=== PATIENT | male | born 1960 | race Caucasian/White ===

== ENCOUNTER → 2017-01-25 | Outpatient (CLI) | payer BC ==
[~2017-01-25] MED LIST: Gadobutrol 10 mMOL/10 ML SDV IVPUSH STA
--- NOTE | 2017-01-25 14:39 | MR ---
EXAMINATION: MRI of the abdomen with and without contrast HISTORY: Cyst of the kidney COMPARISON: CT dated 12/24/2015 TECHNIQUE: Multiplanar and multisequence images obtained through the abdomen before and following th e administration of 3.5 mL of Gadavist. FINDINGS: There are a few very tiny cysts noted within an otherwise unremarkable liver. Cholelithiasis without evidence of cholecystitis. The spleen and adrenal glands appear normal. The pancreas appears normal . There are numerous cysts within the kidneys bilaterally which are predominantly medullary in locatio n with a few cortical cysts also noted. The kidneys enhance and function symmetrically without evide nce of obstructive uropathy. No abnormal enhancement is noted within the cysts. There is no abnormal bone marrow signal. IMPRESSION: 1. Numerous small cysts within the kidneys predominantly medullary in location. 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 2. There are a few renal cortical base cysts also noted. 3. No acute findings demonstrated within the abdomen. 4. Cholelithiasis without evidence of cholecystitis.
== END ==
LOC: MW.MRI 10:13
PROVIDERS: ATTEND Physician Assistant
DX: N28.1 Cyst of kidney, acquired (principal); K80.20 Calculus of gallbladder without cholecystitis without obstruction
CPT/HCPCS: 74183; A9585

== ENCOUNTER 2018-04-13 11:31 | Emergency (ER) | payer BC ==
--- NOTE | 2018-04-13 11:34 | EDM.PDOC ---
ED HPI GENERAL MEDICAL PROBLEM - General Chief Complaint: Genitourinary Problem Stated Complaint: KIDNEY ISSUES Time Seen by Provider: 04/13/18 11:34 Source of Information: Reports: Patient History Limitations: Reports: No Limitations - History of Present Illness INITIAL COMMENTS - FREE TEXT/NARRATIVE: HISTORY AND PHYSICAL: History of present illness: [57-year-old male presenting in the emergency department with right flank pain 7 days with past medical history of multiple renal calculi in Crohn's disease. Patient states that approximately 7 days ago on Tuesday of last week he began to have some right-sided flank pain. He also reports some associated hematuria on the following day. He has had many renal stones and states that he usually passes them on his own within a couple of days, however his pain persisted so he called his teradata developer Dr. Rojas who scheduled him for a renal ultrasound yesterday here in [place]. Today after renal ultrasound results were communicated to Dr. Rojas patient was called by their staff who instructed patient to come to emergency department for evaluation by Dr. Vicente. Patient states that his pain is currently 7 out of 10 however he has been using his 's Vicodin to keep it at a bearable level. Pain is localized to the right lower flank. He denies any associated fever, chills, nausea, vomiting, diarrhea, or other signs of systemic infection. Currently denies any chest pain, palpitations , shortness breath, syncopal episodes, focal neurologic deficits. He does not believe he has passed a stone. Renal ultrasound on showed a moderate right-sided hydronephrosis and hydroureter with renal cortical echogenicity that was mildly increased from his previous study on 10/31/17. There was also multiple renal cysts noted bilaterally as well as incidental cholelithiasis.] Review of systems: As per history of present illness and below otherwise all systems reviewed and negative. Past medical history: As per history of present illness and as reviewed below otherwise noncontributory. Surgical history: As per history of present illness and as reviewed below otherwise noncontributory. Social history: No reported history of drug or alcohol abuse. Family history: As per history of present illness and as reviewed below otherwise noncontributory. Physical exam: HEENT: Atraumatic, normocephalic, pupils reactive, negative for conjunctival pallor or scleral icterus, mucous membranes moist, throat clear, neck supple, nontender, trachea midline. Lungs: Clear to auscultation, breath sounds equal bilaterally, chest nontender. Heart: S1S2, regular, negative for clicks, rubs, or JVD. Abdomen: Soft, nondistended, nontender. Negative for masses or hepatosplenomegaly. Right sided costovertebral tenderness. Pelvis: Stable nontender. Genitourinary: Deferred. Rectal: Deferred. Extremities: Atraumatic, negative for cords or calf pain. Neurovascular unremarkable. Neuro: Awake, alert, oriented. Cranial nerves II through XII unremarkable. Cerebellum unremarkable. Motor and sensory unremarkable throughout. Exam nonfocal. Diagnostics: [CBC, CMP, UA, UC, CT abd/pelvis Therapeutics: [1 L LR, 0.5mg Dilaudid x1, Zofran 4 mg IV 1 ] Impression: Ureterolithiasis, Flank Pain, Hematuria, JOSE Plan: Patient was given 0.5 mg IV Dilaudid, 4 mg IV Zofran, and 1 L LR which helped with his pain control. CBC and urinalysis were unremarkable, no evidence of UTI. CMP did reveal a elevated creatinine clearance of 2.7 this was up from 1.6 on 11/16/17. CT abd/pelvis showed 2 6mm stones in the right ureter, 1 near the UV junction and one mid distal with proximal hydroureter and hydronephrosis. Dr. Vicente, urologist was advised of the patient and after reviewing CT results recommended the patient immediately come to his clinic for further evaluation. Above was all explained to patient and his were in acknowledgment patient was discharged in fair condition with instructions to proceed immediately to Dr. Vicente's clinic for further assessment. Right Flank Pain Score (Numeric/FACES): 7 - Related Data Allergies Allergy/AdvReac Type Severity Reaction Status Date / Time No Known Allergies Allergy Verified 12/24/15 14:14 Home Meds: Home Meds . [No Known Home Meds] 12/24/15 [History] Past Medical History HEENT History: Reports: Other (See Below) Other HEENT History: wearing glasses Cardiovascular History: Reports: None Respiratory History: Reports: None Gastrointestinal History: Reports: Chronic Diarrhea, Other (See Below) Other Gastrointestinal History: chrons dse Genitourinary History: Reports: None Musculoskeletal History: Reports: None Neurological History: Reports: None Psychiatric History: Reports: None Endocrine/Metabolic History: Reports: None Hematologic History: Reports: None Immunologic History: Reports: None Oncologic (Cancer) History: Reports: None Dermatologic History: Reports: None - Infectious Disease History Infectious Disease History: Reports: Chicken Pox, Measles - Past Surgical History GI Surgical History: Reports: Other (See Below) ED ROS GENERAL - Review of Systems Review Of Systems: See Below ED EXAM, GENERAL - Physical Exam Exam: See Below Course - Vital Signs Last Recorded V/S: Last Vital Signs Temp 97.5 F 04/13/18 11:45 Pulse 65 04/13/18 13:34 Resp 18 04/13/18 13:34 BP 179/89 H 04/13/18 13:34 Pulse Ox 98 04/13/18 13:34 - Orders/Labs/Meds Orders: Active Orders 24 hr Category Date Time Status CULTURE URINE [RM] Stat Lab 04/13/18 11:58 Received UA W/MICROSCOPIC [URIN] Stat Lab 04/13/18 11:58 Ordered Lactated Ringers [Ringers, Lactated] 1,000 ml Med 04/13/18 12:15 Active IV ASDIRECTED Medication Orders Lactated Ringer's (Ringers, Lactated) 1,000 mls @ 100 mls/hr IV ASDIRECTED KEHINDE Last Admin: 04/13/18 12:13 Dose: 100 mls/hr Labs: Laboratory Tests 04/13/18 04/13/18 04/13/18 Range/Units 11:55 11:55 11:58 WBC 11.35 H (4.0-11.0) K/uL RBC 4.80 (4.50-5.90) M/uL Hgb 14.5 (13.0-17.0) g/dL Hct 42.7 (38.0-50.0) % MCV 89.0 (80.0-98.0) fL MCH 30.2 (27.0-32.0) pg MCHC 34.0 (31.0-37.0) g/dL RDW Std Deviation 43.5 (28.0-62.0) fl RDW Coeff of Marc 13 (11.0-15.0) % Plt Count 227 (150-400) K/uL MPV 9.10 (7.40-12.00) fL Neut % (Auto) 74.6 (48.0-80.0) % Lymph % (Auto) 15.7 L (16.0-40.0) % Mower % (Auto) 8.2 (0.0-15.0) % Eos % (Auto) 1.1 (0.0-7.0) % Baso % (Auto) 0.4 (0.0-1.5) % Neut # (Auto) 8.5 H (1.4-5.7) K/uL Lymph # (Auto) 1.8 (0.6-2.4) K/uL Mower # (Auto) 0.9 H (0.0-0.8) K/uL Eos # (Auto) 0.1 (0.0-0.7) K/uL Baso # (Auto) 0.0 (0.0-0.1) K/uL Nucleated RBC % 0.0 /100WBC Nucleated RBCs # 0 K/uL Sodium 137 (136-148) mmol/L Potassium 4.3 (3.5-5.1) mmol/L Chloride 106 (98-107) mmol/L Carbon Dioxide 22.7 (21.0-32.0) mmol/L BUN 30 H (7.0-18.0) mg/dL Creatinine 2.7 H (0.8-1.3) mg/dL Est Cr Clr Drug Dosing 29.70 mL/min Estimated GFR (MDRD) 24.4 ml/min Glucose 99 (74-106) mg/dL Calcium 9.3 (8.5-10.1) mg/dL Total Bilirubin 0.4 (0.2-1.0) mg/dL AST 22 (15-37) IU/L ALT 24 (14-63) IU/L Alkaline Phosphatase 86 (46-116) U/L Total Protein 7.6 (6.4-8.2) g/dL Albumin 3.6 (3.4-5.0) g/dL Globulin 4.0 H (2.0-3.5) g/dL Albumin/Globulin Ratio 0.9 L (1.3-2.8) Urine Color YELLOW Urine Appearance CLEAR Urine pH 6.0 (5.0-8.0) Ur Specific [place] 1.020 (1.001-1.035) Urine Protein TRACE (NEGATIVE) mg/dL Urine Glucose (UA) NEGATIVE (NEGATIVE) mg/dL Urine Ketones NEGATIVE (NEGATIVE) mg/dL Urine Occult Blood MODERATE (NEGATIVE) Urine Nitrite NEGATIVE (NEGATIVE) Urine Bilirubin NEGATIVE (NEGATIVE) Urine Urobilinogen 0.2 (<2.0) EU/dL Ur Leukocyte Esterase NEGATIVE (NEGATIVE) Urine RBC 0-2 (0-2/HPF) Urine WBC 0-1 (0-5/HPF) Ur Epithelial Cells RARE (NONE-FEW) Urine Bacteria RARE (NEGATIVE) Meds: Medications Generic Name Dose Route Start Last Admin Trade Name Freq PRN Reason Stop Dose Admin Lactated Ringer's 1,000 mls @ 100 mls/hr 04/13/18 12:15 04/13/18 12:13 Ringers, Lactated IV 100 mls/hr ASDIRECTED KEHINDE Administration Discontinued Medications Generic Name Dose Route Start Last Admin Trade Name Freq PRN Reason Stop Dose Admin Hydromorphone HCl 0.5 mg 04/13/18 12:07 04/13/18 12:14 Dilaudid IVPUSH 04/13/18 12:08 0.5 mg ONETIME ONE Administration Ondansetron HCl 4 mg 04/13/18 12:07 04/13/18 12:14 Zofran IVPUSH 04/13/18 12:08 4 mg ONETIME ONE Administration Departure - Departure Time of Disposition: 14:54 Disposition: Home, Self-Care 01 Condition: Good Clinical Impression: Ureterolithiasis - Discharge Information Referrals: PCP,None [Primary Care Provider] - Forms: ED Department Discharge Additional Instructions: My general discharge The following information is given to patients seen in the emergency department who are being discharged to home. This information is to outline your options for follow-up care. We provide all patients seen in our emergency department with a follow-up referral. The need for follow-up, as well as the timing and circumstances, are variable depending upon the specifics of your emergency department visit. If you don't have a primary care physician on staff, we will provide you with a referral. We always advise you to contact your personal physician following an emergency department visit to inform them of the circumstance of the visit and for follow-up with them and/or the need for any referrals to a consulting specialist. The emergency department will also refer you to a specialist when appropriate. This referral assures that you have the opportunity for follow-up care with a specialist. All of these measure are taken in an effort to provide you with optimal care, which includes your follow-up. Under all circumstances we always encourage you to contact your private physician who remains a resource for coordinating your care. When calling for follow-up care, please make the office aware that this follow-up is from your recent emergency room visit. If for any reason you are refused follow-up, please contact the [facility] Emergency Department at and asked to speak to the emergency department charge nurse. [facility] - Urology [address] [place] [id number] - My Orders Last 24 Hours: My Active Orders 04/13/18 11:58 CULTURE URINE [RM] Stat UA W/MICROSCOPIC [URIN] Stat 04/13/18 12:15 Lactated Ringers [Ringers, Lactated] 1,000 ml IV ASDIRECTED - Assessment/Plan Last 24 Hours: My Active Orders 04/13/18 11:58 CULTURE URINE [RM] Stat UA W/MICROSCOPIC [URIN] Stat 04/13/18 12:15 Lactated Ringers [Ringers, Lactated] 1,000 ml IV ASDIRECTED
[2018-04-13] MEDS ORDERED: HYDROmorphone 1 MG/ML Syringe IVPUSH ONE (12:07)
[2018-04-13] MEDS ORDERED: Ondansetron 4 MG/2 ML SDV IVPUSH ONE (12:07)
[2018-04-13] MEDS ORDERED: Lactated Ringers 1,000 ML IV SCH (12:15)
--- NOTE | 2018-04-13 14:22 | CT ---
CT of the abdomen and pelvis without contrast. HISTORY: Flank pain TECHNIQUE: Axial CT images were obtained of the abdomen and pelvis without contrast. Coronal and sagi ttal reconstructions obtained. FINDINGS: The lung bases are clear, no pleural effusion. The liver, spleen, adrenal glands, and pancreas appear unremarkable for noncontrast examination. The lithiasis without evidence of cholecystitis. There is no bulky retroperitoneal lymphadenopathy. No ab dominal ascites. There is a 6 mm obstructing stone within the mid to distal right ureter with moderate proximal hydron ephrosis. There is an additional 6 mm stone near the right ureterovesicular junction. Otherwise 2 mm nonobstructing stone noted bilaterally. Bilateral renal cortical cysts also demonstrated. The large and small bowel are normal in caliber without evidence of obstruction. Right hemicolectomy. There is no bulky pelvic lymphadenopathy. No free fluid. No free air. The urinary bladder appears no rmal. The visualized osseous structures appear normal. IMPRESSION: 1. There are 2 6-mm nonobstructing stones within the mid to distal and distal right ureter with moder ate proximal hydronephrosis. 2. Right hemicolectomy changes. 3. Small nonobstructing nephrolithiasis bilaterally.
[2018-04-13 15:05] VITALS: BP 146/90
== END 2018-04-13 15:02 | disposition home or self-care (01) ==
LOC: MW.ED 11:31
DX: N13.2 Hydronephrosis with renal and ureteral calculous obstruction (principal)
CPT/HCPCS: 36415; 74176; 80053; 81001; 85025; 87086; 96361; 96374; 96375; 99284; J1170; J2405; J7120; 99283

== ENCOUNTER 2018-04-14 11:27 | Day surgery (SDC) | payer BC ==
[~2018-04-14 11:27] MED LIST changes: -Gadobutrol 10 mMOL/10 ML SDV IVPUSH STA; +Iopamidol 408 MG/ML 50 ML SDV ONE; +Lactated Ringers 1,000 ML IV SCH; +Sodium Chloride 0.9% 10 ML Syringe FLUSH PRN; +Sodium Chloride 0.9% 2.5 ML Syringe FLUSH PRN; +ceFAZolin 1 GM Vial IV ONE
--- NOTE | 2018-04-14 12:11 | PCM.PREANE ---
Preanesthetic Assessment - Anesthesia/Transfusion/Family Hx Anesthesia History: Prior Anesthesia Without Reaction Transfusion History: No Prior Transfusion(s) Intubation History: Unknown - Review of Systems General: Other (back/ abdominal pain due to ureteral stones) Pulmonary: Other (hx asthma) Gastrointestinal: Other (Crohns disease) Neurological: No Symptoms Other: Reports: None - Physical Assessment NPO Status Date: 04/13/18 NPO Status Time: 23:00 Height: 5 ft 11 in Weight: 158 lb ASA Class: 3 Mental Status: Alert & Oriented x3 Airway Class: Mallampati = 1 Dentition: Reports: Normal Dentition, Caries (in multiple molars) Thyro-Mental Finger Breadths: 3 Mouth Opening Finger Breadths: 3 ROM/Head Extension: Full Lungs: Clear to Auscultation, Normal Respiratory Effort Cardiovascular: Regular Rate, Regular Rhythm, No Murmurs Other: wearing bottle glasses - Allergies Allergies/Adverse Reactions: Allergies Allergy/AdvReac Type Severity Reaction Status Date / Time No Known Allergies Allergy Verified 04/13/18 16:36 - Blood Blood Available: No Product(s) Available: None - Anesthesia Plan Pre-Op Medication Ordered: None - Acknowledgements Anesthesia Type Planned: General Anesthesia (OET ) Pt an Appropriate Candidate for the Planned Anesthesia: Yes Alternatives and Risks of Anesthesia Discussed w Pt/Guardian: Yes Pt/Guardian Understands and Agrees with Anesthesia Plan: Yes PreAnesthesia Questionnaire HEENT History: Reports: Other (See Below) Other HEENT History: wearing glasses Cardiovascular History: Reports: None Respiratory History: Reports: Asthma, Other (See Below) Other Respiratory History: asthma as a child Gastrointestinal History: Reports: Chronic Diarrhea, Other (See Below) Other Gastrointestinal History: crohns disease (treated with diet) Genitourinary History: Reports: Renal Calculus Musculoskeletal History: Reports: None Neurological History: Reports: None Psychiatric History: Reports: None Endocrine/Metabolic History: Reports: None Hematologic History: Reports: None Immunologic History: Reports: None Oncologic (Cancer) History: Reports: None Dermatologic History: Reports: None - Infectious Disease History Infectious Disease History: Reports: Chicken Pox, Measles - Past Surgical History Head Surgeries/Procedures: Reports: None HEENT Surgical History: Reports: None, Tonsillectomy Cardiovascular Surgical History: Reports: None Respiratory Surgical History: Reports: None GI Surgical History: Reports: Other (See Below) Other GI Surgeries/Procedures: 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 Other Female Surgeries/Procedures: multiple kidney stone extractions Male Surgical History: Reports: Kidney Stone Extraction Endocrine Surgical History: Reports: None Neurological Surgical History: Reports: None Musculoskeletal Surgical History: Reports: Other (See Below) Other Musculoskeletal Surgeries/Procedures:: left clavicle surgery for osteomylitis Oncologic Surgical History: Reports: None - SUBSTANCE USE Smoking Status *Q: Current Every Day Smoker Tobacco Use Within Last Twelve Months: Cigarettes Days Per Week of Alcohol Use: 7 Recreational Drug Use History: No - HOME MEDS Home Medications: Home Meds Tamsulosin HCl [Flomax] 0.4 mg PO DAILY 04/13/18 [History] - CURRENT (IN HOUSE) MEDS Current Meds: Current Medications Lactated Ringer's (Ringers, Lactated) 1,000 mls @ 100 mls/hr IV ASDIRECTED KEHINDE Sodium Chloride (Saline Flush) 10 ml FLUSH ASDIRECTED PRN PRN Reason: Keep Vein Open Sodium Chloride (Saline Flush) 2.5 ml FLUSH ASDIRECTED PRN PRN Reason: Keep Vein Open Discontinued Medications Cefazolin Sodium (Ancef) 1 gm IV ONCALL ONE Stop: 04/14/18 00:02 Iopamidol (Isovue-200 (41%)) Confirm Administered Dose 50 ml .ROUTE .STK-MED ONE Stop: 04/14/18 08:24
[2018-04-14] MEDS ORDERED: Midazolam 1 MG/ML 2 ML SDV ONE (12:42)
[2018-04-14] MEDS ORDERED: Ondansetron 4 MG/2 ML SDV ONE (12:42)
[2018-04-14] MEDS ORDERED: fentaNYL 250 MCG/5 ML SDV ONE (12:42)
[2018-04-14] MEDS ORDERED: Propofol 200 MG/20 ML SDV ONE (12:42)
[2018-04-14] MEDS ORDERED: Ketorolac 30 MG/ML SDV ONE (12:42)
[2018-04-14] MEDS ORDERED: Lidocaine 2% 5 ML SDV ONE (12:42)
[2018-04-14] MEDS ORDERED: ePHEDrine 50 MG/ML SDV ONE (13:24)
[2018-04-14] MEDS ORDERED: fentaNYL 100 MCG/2 ML SDV IVPUSH PRN (13:39)
--- NOTE | 2018-04-14 15:19 | PCM.POSTAN ---
POST ANESTHESIA ASSESSMENT - MENTAL STATUS Mental Status: Alert, Oriented Free Text/Narrative:: Resting comfortably responding verbally to verbal taking ice chips - VITAL SIGNS Pulse Rate: 71 SaO2: 95 (Room air) Resp Rate: 13 Blood Pressure: 122/83 - RESPIRATORY Respiratory Status: Respiratory Rate WNL, Airway Patent, O2 Saturation Stable - CARDIOVASCULAR CV Status: Pulse Rate WNL, Blood Pressure Stable - GASTROINTESTINAL GI Status: No Symptoms - PAIN Pain Score: 2 (feels need to void) - POST OP HYDRATION Hydration Status: Adequate & Stable
--- NOTE | 2018-04-14 15:45 | CR ---
EXAMINATION: Ureteroscopy HISTORY: Stone removal COMPARISON: 04/13/2018 TECHNIQUE: 2 images provided FINDINGS/IMPRESSION: Operative control films demonstrate selection of the right ureter with balloon i nsufflation. Initial image demonstrates 2 stones, only one is noted on the second imaging.
--- NOTE | 2018-04-14 15:49 | PCM48HPAN ---
Post Anesthesia Note - EVALUATION WITHIN 48HRS OF ANESTHETIC Vital Signs in Normal Range: Yes Patient Participated in Evaluation: Yes Respiratory Function Stable: Yes Airway Patent: Yes Cardiovascular Function Stable: Yes Hydration Status Stable: Yes Pain Control Satisfactory: Yes Nausea and Vomiting Control Satisfactory: Yes Mental Status Recovered: Yes Pulse Rate: 71 Resp Rate: 13 Blood Pressure: 122/83 - COMMENTS/OBSERVATIONS Free Text/Narrative:: Will be OK for discharge home when he is a little less sedate.
[2018-04-14 16:21] VITALS: BP 158/86
--- NOTE | 2018-04-14 19:38 | OR ---
SURGEON: Lore Vicente M.D. DATE OF PROCEDURE: 04/14/2018 PREOPERATIVE DIAGNOSIS: Two lower ureteral stones, one was 6.3 and the other was 5.7 mm each. POSTOPERATIVE DIAGNOSIS: Two lower ureteral stones, one was 6.3 and the other was 5.7 mm each. OPERATIONS: Right ureteroscopy, laser lithotripsy. DESCRIPTION OF PROCEDURE: The patient was given general anesthesia, placed in dorsal lithotomy position, prepped and draped in sterile drapes. Cystourethroscopy was done that was normal. A Glidewire was advanced in the right ureter alongside the stone all the way up into the renal pelvis. Lower ureter was then dilated using the UroMax II balloon dilator to approximately 15-[place]. The rigid ureteroscope was used to gain access to the lower ureter. The various stone was broken up using laser. The pieces were emptied in the bladder. The second stone was also broken in same way using the laser to grab and removed. With that done, all the pieces were irrigated out of the bladder. Cystoscopy showed no residual stones in the bladder. The ureter was clean. With that done, the procedure was terminated. The bladder was emptied, and the patient was moved to recovery room in good condition. ADRIANA / STEVE /[id number]
== END 2018-04-14 16:30 | disposition home or self-care (01) ==
LOC: MW.SDS 11:27
PROVIDERS: ATTEND Urology
DX: N20.1 Calculus of ureter (principal); K60.5 Anorectal fistula; N28.1 Cyst of kidney, acquired; H61.23 Impacted cerumen, bilateral; F17.210 Nicotine dependence, cigarettes, uncomplicated; J45.909 Unspecified asthma, uncomplicated; Z90.89 Acquired absence of other organs; Z79.899 Other long term (current) drug therapy
CPT/HCPCS: 76000; 76000-26; J0690; J1885; J2250; J2405; J2704; J3010; J7120; Q9966

== ENCOUNTER 2020-10-02 12:14 | Emergency (ER) | payer BC ==
--- NOTE | 2020-10-02 12:26 | EDM.PDOC ---
ED HPI GENERAL MEDICAL PROBLEM - General Chief Complaint: Genitourinary Problem Stated Complaint: KIDNEY STONE Time Seen by Provider: 10/02/20 12:25 Source of Information: Reports: Patient History Limitations: Reports: No Limitations - History of Present Illness INITIAL COMMENTS - FREE TEXT/NARRATIVE: HISTORY AND PHYSICAL: History of present illness: Patient is a 59-year-old male who presents to the emergency room with complaints of bilateral flank pain, left worse than right. Patient states he has a history of frequent kidney stones. He states this morning he had felt he passed a rate kidney stone, but now has pain in the left flank and believes it is "too large to pass". He states he has nausea, vomiting and generalized abdominal pain. Patient denies any fever, chills, headache, change in vision, syncope or near syncope. Denies any chest pain, back pain, shortness of breath or cough. Denies any abdominal pain, nausea, vomiting, diarrhea, constipation or dysuria. Has not noted any blood in urine or stool. Patient has been eating and drinking appropriately. Review of systems: As per history of present illness and below otherwise all systems reviewed and negative. Past medical history: As per history of present illness and as reviewed below otherwise noncontributory. Surgical history: As per history of present illness and as reviewed below otherwise noncontributory. Social history: See social history for further information Family history: As per history of present illness and as reviewed below otherwise noncontributory. Physical exam: General: Well developed and well nourished. Alert and orientated x 3. Nontoxic in appearance and in no acute distress. Vital signs are stable and have been reviewed by me. Nursing notes were reviewed. HEENT: Atraumatic, normocephalic, pupils equal and reactive bilaterally, negative for conjunctival pallor or scleral icterus, mucous membranes moist, trachea midline. No drooling or trismus noted. No meningeal signs. No hot potato voice noted. Lungs: Clear to auscultation, breath sounds equal bilaterally, chest nontender. Normal work of breathing, no accessory muscles used. Heart: S1S2, regular rate and rhythm without overt murmur Abdomen: Soft, nondistended, nontender. Negative for masses or hepatosplenomegaly. Left-sided costovertebral tenderness. Skin: Intact, warm, dry. No lesions or rashes noted. Hematologic: No petechiae or purpra. Mucosa appropriate color and normal nail bed color and refill. Extremities: Atraumatic, moves all extremities per self without difficulty or deficits, negative for cords or calf pain. Neurovascular unremarkable. Neuro: Awake, alert, oriented. Cranial nerves II through XII unremarkable. Cerebellum unremarkable. Motor and sensory unremarkable throughout. Exam nonfocal. Psychiatric: Mood and affect are appropriate. Normal thought process. Answering questions appropriately. Notes: CT shows an 8 mm stone in the proximal left ureter just below the ureteropelvic junction with associated left-sided hydronephrosis and hydroureter. Otherwise extensive cystic changes are noted in the kidneys (chronic findings: "spongy kidneys"). Patient does have a leukocytosis. BUN and creatinine are elevated, Our urologist is currently unavailable. I did speak with Dr. Graves, urology at [facility] in [place]. She believes the patient is stable for discharge and can follow-up in her clinic. I have spoken with the patient/caregiver and discussed today's findings, in addition to providing specific details for plan of care. Reassessment at the time of disposition demonstrates that the patient is in no acute distress. The patient is stable for discharge, counseling was provided and we discussed in great detail signs and symptoms that would prompt them to return to the Emergency Department. Medication, follow up and supportive care measures were reviewed and discussed. Voices understanding and is agreeable to plan of care. Denies any further questions or concerns at this time. Diagnostics: CBC, CMP, UA, CT abdomen and pelvis Therapeutics: IV fluid, Zofran, morphine, Dilaudid, Rocephin Prescription: Cipro, [place], Zofran Impression: Kidney Stone Hydronephrosis Plan: 1. Today your CT shows you have a large kidney stone on the left. This may or may not pass. Increase your fluids. Dr Vicente ([facility] urologist is out of town x 2 weeks), I spoke with Dr Graves ([facility] urologist) who is happy to see you in her office if needed. Please call her clinic to set up an appointment. . If your symptoms should worsen, new symptoms develop (fever, unable to pee, unbearable pain) or any of the signs and symptoms we discussed should arise please return to the emergency room or call 911 (if needed). 2. Take the medications as directed. 3. We encourage you to follow up with your primary care provider and/or Urologist in the next few days for re-evaluation and further care/management. Definitive disposition and diagnosis as appropriate pending reevaluation and review of above. Left flank Pain Score (Numeric/FACES): 9 - Related Data Allergies Allergy/AdvReac Type Severity Reaction Status Date / Time No Known Allergies Allergy Verified 10/02/20 12:59 Home Meds: Home Meds Acetaminophen/HYDROcodone [[place] 325-5 MG] 1 dose PO Q4H #30 tablet 10/02/20 [Rx] Ciprofloxacin HCl [Cipro] 500 mg PO BID 7 Days #14 tablet 10/02/20 [Rx] Ondansetron [Zofran ODT] 4 mg PO Q6H PRN #8 tab.dis 10/02/20 [Rx] Past Medical History HEENT History: Reports: Other (See Below) Other HEENT History: wearing glasses Cardiovascular History: Reports: None Respiratory History: Reports: Asthma, Other (See Below) Other Respiratory History: asthma as a child Gastrointestinal History: Reports: Chronic Diarrhea, Other (See Below) Other Gastrointestinal History: crohns disease (treated with diet) Genitourinary History: Reports: Renal Calculus Musculoskeletal History: Reports: None Neurological History: Reports: None Psychiatric History: Reports: None Endocrine/Metabolic History: Reports: None Hematologic History: Reports: None Immunologic History: Reports: None Oncologic (Cancer) History: Reports: None Dermatologic History: Reports: None - Infectious Disease History Infectious Disease History: Reports: Chicken Pox, Measles - Past Surgical History Head Surgeries/Procedures: Reports: None HEENT Surgical History: Reports: None, Tonsillectomy Cardiovascular Surgical History: Reports: None Respiratory Surgical History: Reports: None GI Surgical History: Reports: Other (See Below) Other GI Surgeries/Procedures: 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 ED EXAM, RENAL/ - Physical Exam Exam: See Below (See dictation) Course - Vital Signs Last Recorded V/S: Last Vital Signs Temp 96.9 F 10/02/20 12:30 Pulse 88 10/02/20 12:30 Resp 18 10/02/20 12:30 BP 165/77 H 10/02/20 12:30 Pulse Ox 100 10/02/20 12:30 - Orders/Labs/Meds Labs: Laboratory Tests 10/02/20 10/02/20 10/02/20 Range/Units 12:49 12:49 13:47 WBC 15.95 H (4.0-11.0) K/uL RBC 4.72 (4.50-5.90) M/uL Hgb 14.7 (13.0-17.0) g/dL Hct 44.4 (38.0-50.0) % MCV 94.1 (80.0-98.0) fL MCH 31.1 (27.0-32.0) pg MCHC 33.1 (31.0-37.0) g/dL RDW Std Deviation 45.9 (28.0-62.0) fl RDW Coeff of Marc 13 (11.0-15.0) % Plt Count 250 (150-400) K/uL MPV 9.30 (7.40-12.00) fL Neut % (Auto) 78.0 (48.0-80.0) % Lymph % (Auto) 12.9 L (16.0-40.0) % Butler % (Auto) 8.5 (0.0-15.0) % Eos % (Auto) 0.3 (0.0-7.0) % Baso % (Auto) 0.3 (0.0-1.5) % Neut # (Auto) 12.5 H (1.4-5.7) K/uL Lymph # (Auto) 2.1 (0.6-2.4) K/uL Butler # (Auto) 1.4 H (0.0-0.8) K/uL Eos # (Auto) 0.0 (0.0-0.7) K/uL Baso # (Auto) 0.0 (0.0-0.1) K/uL Nucleated RBC % 0.0 /100WBC Nucleated RBCs # 0 K/uL Sodium 140 (136-148) mmol/L Potassium 4.3 (3.5-5.1) mmol/L Chloride 108 H (98-107) mmol/L Carbon Dioxide 18.2 L (21.0-32.0) mmol/L BUN 22 H (7.0-18.0) mg/dL Creatinine 2.6 H (0.8-1.3) mg/dL Est Cr Clr Drug Dosing 31.01 mL/min Estimated GFR (MDRD) 25.3 ml/min Glucose 113 H (74-106) mg/dL Calcium 8.8 (8.5-10.1) mg/dL Total Bilirubin 0.4 (0.2-1.0) mg/dL AST 20 (15-37) IU/L ALT 23 (14-63) IU/L Alkaline Phosphatase 78 (46-116) U/L Total Protein 6.6 (6.4-8.2) g/dL Albumin 3.6 (3.4-5.0) g/dL Globulin 3.0 (2.6-4.0) g/dL Albumin/Globulin Ratio 1.2 (0.9-1.6) Urine Color YELLOW Urine Appearance CLEAR Urine pH 5.5 (5.0-8.0) Ur Specific [place] 1.025 (1.001-1.035) Urine Protein NEGATIVE (NEGATIVE) mg/dL Urine Glucose (UA) NEGATIVE (NEGATIVE) mg/dL Urine Ketones NEGATIVE (NEGATIVE) mg/dL Urine Occult Blood LARGE H (NEGATIVE) Urine Nitrite NEGATIVE (NEGATIVE) Urine Bilirubin NEGATIVE (NEGATIVE) Urine Urobilinogen 0.2 (<2.0) EU/dL Ur Leukocyte Esterase NEGATIVE (NEGATIVE) Urine RBC 12-13 (0-2/HPF) Urine WBC 0-1 (0-5/HPF) Ur Epithelial Cells RARE (NONE-FEW) Urine Bacteria RARE (NEGATIVE) Meds: Medications Discontinued Medications Generic Name Dose Route Start Last Admin Trade Name Freq PRN Reason Stop Dose Admin Hydromorphone HCl 1 mg 10/02/20 13:39 10/02/20 13:53 Dilaudid IVPUSH 10/02/20 13:40 1 mg ONETIME ONE Administration Sodium Chloride 1,000 mls @ 999 mls/hr 10/02/20 12:28 10/02/20 12:49 Normal Saline IV 10/02/20 13:28 999 mls/hr STAT ONE Administration Ceftriaxone Sodium/Dextrose 1 50 mls @ 100 mls/hr 10/02/20 13:39 10/02/20 13:53 gm/ Premix IV 10/02/20 14:08 100 mls/hr ONETIME ONE Administration Morphine Sulfate 4 mg 10/02/20 12:28 10/02/20 12:48 Morphine IVPUSH 10/02/20 12:29 4 mg ONETIME ONE Administration Ondansetron HCl 4 mg 10/02/20 12:28 10/02/20 12:48 Zofran IVPUSH 10/02/20 12:29 4 mg ONETIME ONE Administration Departure - Departure Time of Disposition: 14:26 Disposition: Home, Self-Care 01 Clinical Impression: Kidney stone on left side Hydronephrosis Qualifiers: 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 This information is to outline your options for follow-up care. We provide all patients seen in our emergency department with a follow-up referral. The need for follow-up, as well as the timing and circumstances, are variable depending upon the specifics of your emergency department visit. If you don't have a primary care physician on staff, we will provide you with a referral. We always advise you to contact your personal physician following an emergency department visit to inform them of the circumstance of the visit and for follow-up with them and/or the need for any referrals to a consulting specialist. The emergency department will also refer you to a specialist when appropriate. This referral assures that you have the opportunity for follow-up care with a specialist. All of these measure are taken in an effort to provide you with optimal care, which includes your follow-up. Under all circumstances we always encourage you to contact your private physician who remains a resource for coordinating your care. When calling for follow-up care, please make the office aware that this follow-up is from your recent emergency room visit. If for any reason you are refused follow-up, please contact the [facility] Emergency Department at and asked to speak to the emergency department charge nurse. Dr Graves (Urologist) [address] [place] [address]: Located on [address] Floor Thank you for choosing the [facility] emergency department in [place] for your medical needs today. It was a pleasure caring for you. Today you were seen in the emergency department for kidney stone. 1. Today your CT shows you have a large kidney stone on the left. This may or may not pass. Increase your fluids. Dr Vicente ([facility] urologist is out of town x 2 weeks), I spoke with Dr Graves ([facility] urologist) who is happy to see you in her office if needed. Please call her clinic to set up an appointment. . If your symptoms should worsen, new symptoms develop (fever, unable to pee, unbearable pain) or any of the signs and symptoms we discussed should arise please return to the emergency room or call 911 (if needed). 2. Take the medications as directed. 3. We encourage you to follow up with your primary care provider and/or Urologist in the next few days for re-evaluation and further care/management. Sepsis Event Note (ED) - Focused Exam Vital Signs: Vital Signs Temp Pulse Resp BP Pulse Ox 10/02/20 12:30 96.9 F 88 18 165/77 H 100
[2020-10-02] MEDS ORDERED: Ondansetron 4 MG/2 ML SDV IVPUSH ONE (12:28)
[2020-10-02] MEDS ORDERED: Morphine 4 MG/ML Syringe IVPUSH ONE (12:28)
[2020-10-02] MEDS ORDERED: Sodium Chloride 0.9% 1,000 ML IV ONE (12:28)
[2020-10-02 13:18] LABS: CARBON DIOXIDE,CO2 18.2 mmol/L (21.0-32.0); POTASSIUM,K 4.3 mmol/L (3.5-5.1)
--- NOTE | 2020-10-02 13:32 | CT ---
Indication: Left flank pain Technique: Volumetric multidetector CT images of the abdomen and pelvis were without the administration of intravenous contrast. Comparison: CT abdomen and pelvis April 13, 2018 Findings: There is basilar atelectasis versus scar. The liver is again mildly prominent, similar to comparison exam. There is a dependent gallstone within the gallbladder otherwise, the gallbladder is unremarkable. There is no significant common biliary ductal dilatation or abrupt cut off. The spleen is normal in attenuation and size. The stomach and duodenum are grossly unremarkable. The pancreas is normal in attenuation without significant atrophy. The adrenal glands are unremarkable. There is demonstration of left-sided hydronephrosis and hydroureter with a 8 millimeter calculus just below the ureteropelvic junction. There are likely cystic changes of the bilateral kidneys appreciated. Nonobstructing calculi are seen in the bilateral collecting systems. There is moderate stool seen throughout the colon with prior colectomy and primary anastomosis. The appendix is not visualized. There is no significant mesenteric, retroperitoneal, or pelvic sidewall lymph nodes. The aorta is nonaneurysmal. There is no significant atherosclerotic disease appreciated. The solid pelvic viscera are grossly unremarkable. There is no free fluid or free air. The anterior abdominal wall is intact without significant hernias. There is mild degenerative change of the lumbosacral spine without evidence of acute osseous abnormality. Impression: Demonstration of an 8.0 millimeter calculus within the proximal left ureter just below the ureteropelvic junction with associated left-sided hydronephrosis and hydroureter. Otherwise extensive cystic changes of the kidneys are again appreciated. Please note that all CT scans at this facility use dose modulation, iterative reconstruction, and/or weight-based dosing when appropriate to reduce radiation dose to as low as reasonably achievable. Dictated by Royer Briscoe MD @ Oct 02 2020 1:25PM Signed by Dr. Royer Briscoe @ Oct 02 2020 1:31PM
[2020-10-02] MEDS ORDERED: HYDROmorphone 1 MG/ML Syringe IVPUSH ONE (13:39)
[2020-10-02] MEDS ORDERED: cefTRIAXone 1 GM in Premix Bag 1 BAG IV ONE (13:39)
[2020-10-02 14:42] VITALS: BP 132/76; PULSE 87
== END 2020-10-02 14:42 | disposition home or self-care (01) ==
LOC: MW.ED 12:14
DX: N13.2 Hydronephrosis with renal and ureteral calculous obstruction (principal); J45.909 Unspecified asthma, uncomplicated
CPT/HCPCS: 36415; 74176; 80053; 81001; 85025; 96365; 96375; 99284; J0696; J1170; J2270; J2405; J7030

== ENCOUNTER 2020-10-03 03:30 | Emergency (ER) | payer BC ==
[2020-10-03] MEDS ORDERED: HYDROmorphone 1 MG/ML Syringe IVPUSH ONE (03:42)
[2020-10-03] MEDS ORDERED: Lactated Ringers 1,000 ML IV SCH (04:00)
[2020-10-03 04:31] LABS: CARBON DIOXIDE,CO2 21.4 mmol/L (21.0-32.0); POTASSIUM,K 4.2 mmol/L (3.5-5.1)
[2020-10-03 04:47] VITALS: BP 127/75; PULSE 71
--- NOTE | 2020-10-03 05:11 | EDM.PDOC ---
ED HPI GENERAL MEDICAL PROBLEM - General Chief Complaint: Flank Pain Stated Complaint: KIDNEY STONE- UNCONTROLLABLE PAIN Time Seen by Provider: 10/03/20 03:35 - History of Present Illness INITIAL COMMENTS - FREE TEXT/NARRATIVE: CHIEF COMPLAINT(S): Left flank pain HISTORY OF PRESENT ILLNESS: This is a 59-year-old man with a past medical history of recent diagnosis of nephrolithiasis who comes to the emergency department with a chief complaint of left flank pain. The patient states that he was evaluated earlier yesterday for left flank pain and was found to have a 8 mm stone. He stated that he was discharged home on pain medications and antibiotics and was told to contact a urologist at [facility]. He stated he called to make an appointment and they could get him in in mid October. He stated that approximately an hour prior to arrival he started to experience worsening pain in his left flank. He states that the pain medication prior to this had been controlling his pain however he could not bear it. He denies any blood in his urine but states that he does have some decreased amount of urination. He denies any fevers or chills. He denies any other symptoms. REVIEW OF SYSTEMS: Constitutional: Denies fever, chills. Eyes: Denies eye pain Ears, Nose, Mouth, & Throat: Denies earache Cardiovascular: Denies chest pain Respiratory: Denies shortness of breath Gastrointestinal: Denies Nausea, vomiting, diarrhea, hematochezia. Genitourinary: Positive for flank pain and decreased urination Skin:Denies a rash Neurological: Denies blurred vision Psychiatric: Denies depression PAST MEDICAL HISTORY: As per history of present illness and as reviewed below otherwise noncontributory. SURGICAL HISTORY: As per history of present illness and as reviewed below otherwise noncontributory. SOCIAL HISTORY: As per history of present illness and as reviewed below otherwise noncontributory. FAMILY HISTORY: As per history of present illness and as reviewed below otherwise noncontributory. EXAMINATION OF ORGAN SYSTEMS/BODY AREAS: Constitutional: Blood pressure was 119/77, heart rate 78, respiratory rate 16 with an oxygen saturation 98% on room air. Temperature 36.6 General: Middle-aged man who does appear to be mildly uncomfortable. Psychiatric: Appropriate mood and affect. Eyes: No scleral icterus or conjunctival erythema ENMT: Moist mucous membranes. No pharyngeal erythema Cardiovascular: Regular, rate, and rythym. No gallops, murmurs, or rubs. Bilateral upper extremity pulses symmetric and intact. No peripheral edema. No JVD. Respiratory: Lungs clear to auscultation bilaterally. No wheezes, rales, or rhonchi. Gastrointestinal: Soft, non-tender, non-distended. Normoactive bowel sounds Genitourinary: No suprapubic tenderness left flank tenderness. Musculoskeletal: Normal range of motion. Skin: No lesions or abrasions. Neurological: Alert, GCS 15 MEDICAL DECISION MAKING AND COURSE IN THE ED WITH INTERPRETATION/REVIEW OF DIAGNOSTIC STUDIES: This is a 59-year-old man and with a recent diagnosis of 8 mm obstructing stone with hydronephrosis and hydroureter who comes to the emergency department with increased left flank pain. At this time we will provide the patient with IV Dilaudid for pain relief. We will obtain repeat labs including BMP and urinalysis to evaluate for worsening kidney function or evidence of infection in urine. I do not believe a repeat CT is indicated at this time. Laboratory: CBC reveals a leukocytosis of 14.48 with neutrophilic predominance. BMP reveals elevated BUN at 24 and creatinine of 3.1 which is increased from prior at 22 and 2.6 yesterday. Urinaylysis was a clean catch and was negative for leukocyte esterase, negative for nitrites, and positive for blood. Interpretation: Hematuria After labs I did discuss the results with the patient. I discussed with him at this time that given the worsening kidney function I do believe he requires evaluation sooner than October. He stated that he is willing for evaluation at this time. Given that we do not have a urologist research nurse practitioner here at [facility] I did contact my not however they do not have any beds therefore they will not be able to admit the patient. Therefore I contacted [facility] in [place] I discussed the patient with urologist Dr. Riggs who agreed that the patient needed intervention and that he would be able to fit him onto the schedule today. Th erefore, I did talk to hospitalist Dr. Mccarthy who accepted the transfer. I did discuss this with the patient and he did not want to be transferred by ambulance. Given that the patient is stable at this time the patient elected to be transported via private vehicle. I did have this discussion with his who is on his way to the hospital for transport to [facility]. I did discuss strict n.p.o. status on the way to the hospital there. He is to present to the emergency department. DISPOSITION: The patient was transferred via private vehicle to [facility] in [place] CONDITION: Fair PROCEDURES: None FINAL IMPRESSION(S)/DIAGNOSES: 1. Acute obstructing left ureteral stone with hydronephrosis and hydroureter 2. Acute kidney injury secondary to #1 Ramin Sarkar M.D. Left Flank Pain Score (Numeric/FACES): 10 - Related Data Allergies Allergy/AdvReac Type Severity Reaction Status Date / Time No Known Allergies Allergy Verified 10/02/20 12:59 Home Meds: Home Meds Acetaminophen/HYDROcodone [[place] 325-5 MG] 1 dose PO Q4H #30 tablet 10/02/20 [Rx] Ciprofloxacin HCl [Cipro] 500 mg PO BID 7 Days #14 tablet 10/02/20 [Rx] Ondansetron [Zofran ODT] 4 mg PO Q6H PRN #8 tab.dis 10/02/20 [Rx] Past Medical History HEENT History: Reports: Other (See Below) Other HEENT History: wearing glasses Cardiovascular History: Reports: None Respiratory History: Reports: Asthma, Other (See Below) Other Respiratory History: asthma as a child Gastrointestinal History: Reports: Chronic Diarrhea, Other (See Below) Other Gastrointestinal History: crohns disease (treated with diet) Genitourinary History: Reports: Renal Calculus Musculoskeletal History: Reports: None Neurological History: Reports: None Psychiatric History: Reports: None Endocrine/Metabolic History: Reports: None Hematologic History: Reports: None Immunologic History: Reports: None Oncologic (Cancer) History: Reports: None Dermatologic History: Reports: None - Infectious Disease History Infectious Disease History: Reports: Chicken Pox, Measles - Past Surgical History Head Surgeries/Procedures: Reports: None HEENT Surgical History: Reports: None, Tonsillectomy Cardiovascular Surgical History: Reports: None Respiratory Surgical History: Reports: None GI Surgical History: Reports: Other (See Below) Other GI Surgeries/Procedures: 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 Male Surgical History: Reports: Kidney Stone Extraction Endocrine Surgical History: Reports: None Neurological Surgical History: Reports: None Musculoskeletal Surgical History: Reports: Other (See Below) Other Musculoskeletal Surgeries/Procedures:: left clavicle surgery for osteomylitis Oncologic Surgical History: Reports: None Social & Family History - Family History Family Medical History: Noncontributory - Caffeine Use Caffeine Use: Reports: None - Recreational Drug Use Recreational Drug Use: No ED ROS GENERAL - Review of Systems Review Of Systems: See Below ED EXAM, GENERAL - Physical Exam Exam: See Below Course - Vital Signs Last Recorded V/S: Last Vital Signs Temp 36.6 C 10/03/20 03:41 Pulse 71 10/03/20 04:47 Resp 14 10/03/20 04:47 BP 127/75 10/03/20 04:47 Pulse Ox 98 10/03/20 04:47 - Orders/Labs/Meds Orders: Active Orders 24 hr Category Date Time Status CORONAVIRUS COVID-19 PCR PHL Stat Lab 10/03/20 04:39 Ordered Lactated Ringers [Ringers, Lactated] 1,000 ml Med 10/03/20 04:00 Active IV .BOLUS Medication Orders Lactated Ringer's (Ringers, Lactated) 1,000 mls @ 999 mls/hr IV .BOLUS KEHINDE Last Admin: 10/03/20 04:23 Dose: 999 mls/hr Documented by: NICKOLAS Labs: Laboratory Tests 10/03/20 10/03/20 10/03/20 Range/Units 04:00 04:00 04:00 WBC 14.48 H (4.0-11.0) K/uL RBC 4.49 L (4.50-5.90) M/uL Hgb 14.0 (13.0-17.0) g/dL Hct 42.7 (38.0-50.0) % MCV 95.1 (80.0-98.0) fL MCH 31.2 (27.0-32.0) pg MCHC 32.8 (31.0-37.0) g/dL RDW Std Deviation 46.4 (28.0-62.0) fl RDW Coeff of Marc 14 (11.0-15.0) % Plt Count 232 (150-400) K/uL MPV 9.30 (7.40-12.00) fL Neut % (Auto) 82.4 H (48.0-80.0) % Lymph % (Auto) 8.4 L (16.0-40.0) % [place] % (Auto) 8.8 (0.0-15.0) % Eos % (Auto) 0.3 (0.0-7.0) % Baso % (Auto) 0.1 (0.0-1.5) % Neut # (Auto) 11.9 H (1.4-5.7) K/uL Lymph # (Auto) 1.2 (0.6-2.4) K/uL [place] # (Auto) 1.3 H (0.0-0.8) K/uL Eos # (Auto) 0.0 (0.0-0.7) K/uL Baso # (Auto) 0.0 (0.0-0.1) K/uL Nucleated RBC % 0.0 /100WBC Nucleated RBCs # 0 K/uL Sodium 139 (136-148) mmol/L Potassium 4.2 (3.5-5.1) mmol/L Chloride 106 (98-107) mmol/L Carbon Dioxide 21.4 (21.0-32.0) mmol/L BUN 24 H (7.0-18.0) mg/dL Creatinine 3.1 H (0.8-1.3) mg/dL Est Cr Clr Drug Dosing 25.20 mL/min Estimated GFR (MDRD) 20.7 ml/min Glucose 125 H (74-106) mg/dL Calcium 8.6 (8.5-10.1) mg/dL Urine Color YELLOW Urine Appearance SLT CLOUDY Urine pH 5.5 (5.0-8.0) Ur Specific [place] >= 1.030 (1.001-1.035) Urine Protein TRACE H (NEGATIVE) mg/dL Urine Glucose (UA) NEGATIVE (NEGATIVE) mg/dL Urine Ketones NEGATIVE (NEGATIVE) mg/dL Urine Occult Blood LARGE H (NEGATIVE) Urine Nitrite NEGATIVE (NEGATIVE) Urine Bilirubin NEGATIVE (NEGATIVE) Urine Urobilinogen 0.2 (<2.0) EU/dL Ur Leukocyte Esterase NEGATIVE (NEGATIVE) Urine RBC 9-12 (0-2/HPF) Urine WBC 1-3 (0-5/HPF) Ur Epithelial Cells RARE (NONE-FEW) Urine Bacteria FEW (NEGATIVE) Urine Mucus LIGHT (NONE-MOD) Meds: Medications Generic Name Dose Route Start Last Admin Trade Name Freq PRN Reason Stop Dose Admin Lactated Ringer's 1,000 mls @ 999 mls/hr 10/03/20 04:00 10/03/20 04:23 Ringers, Lactated IV 999 mls/hr .BOLUS KEHINDE Administration Discontinued Medications Generic Name Dose Route Start Last Admin Trade Name Rekha PRN Reason Stop Dose Admin Hydromorphone HCl 1 mg 10/03/20 03:42 10/03/20 04:24 Dilaudid IVPUSH 10/03/20 03:43 1 mg ONETIME ONE Administration Departure - Departure Time of Disposition: 05:11 Disposition: DC/Tfer to Acute Hospital 02 Condition: Fair Clinical Impression: Kidney stone on left side Hydronephrosis Qualifiers: Hydronephrosis type: with ureteral calculous obstruction Qualified Code(s): N13.2 - Hydronephrosis with renal and ureteral calculous obstruction - Discharge Information *PRESCRIPTION DRUG MONITORING PROGRAM REVIEWED*: No *COPY OF PRESCRIPTION DRUG MONITORING REPORT IN PATIENT GATO: No Referrals: PCP,None [Primary Care Provider] - Sepsis Event Note (ED) - Evaluation Sepsis Screening Result: No Definite Risk - Focused Exam Vital Signs: Vital Signs Temp Pulse Resp BP Pulse Ox 10/03/20 04:47 71 14 127/75 98 10/03/20 03:41 36.6 C 78 16 119/77 98 - My Orders Last 24 Hours: My Active Orders 10/03/20 04:00 Lactated Ringers [Ringers, Lactated] 1,000 ml IV .BOLUS 10/03/20 04:39 CORONAVIRUS COVID-19 PCR PHL Stat - Assessment/Plan Last 24 Hours: My Active Orders 10/03/20 04:00 Lactated Ringers [Ringers, Lactated] 1,000 ml IV .BOLUS 10/03/20 04:39 CORONAVIRUS COVID-19 PCR PHL Stat
== END 2020-10-03 05:34 ==
LOC: MW.ED 03:30
DX: N17.9 Acute kidney failure, unspecified (principal); N13.2 Hydronephrosis with renal and ureteral calculous obstruction; J45.909 Unspecified asthma, uncomplicated
CPT/HCPCS: 36415; 80048; 81001; 85025; 96374; 99284; J1170; J7120

== ENCOUNTER 2020-11-25 18:11 | Emergency (ER) | payer BC ==
[2020-11-25 19:18] LABS: CARBON DIOXIDE,CO2 18.8 mmol/L (21.0-32.0); POTASSIUM,K 3.7 mmol/L (3.5-5.1)
[2020-11-25] MEDS ORDERED: Ciprofloxacin in D5W 400 MG in Premix Bag 1 BAG IV ONE ×2 (20:30)
[2020-11-25] MEDS ORDERED: Ketorolac 30 MG/ML SDV IVPUSH ONE (20:33)
--- NOTE | 2020-11-25 21:13 | EDM.PDOC ---
ED HPI GENERAL MEDICAL PROBLEM - General Chief Complaint: Genitourinary Problem Stated Complaint: KIDNEY PROBLEM Time Seen by Provider: 11/25/20 18:32 Source of Information: Reports: Patient History Limitations: Reports: No Limitations - History of Present Illness INITIAL COMMENTS - FREE TEXT/NARRATIVE: Presents reporting back pain and increasing hematuria. The patient states that he has a stent in his left ureter. He had an 8 mm stone and pyelonephritis about a month ago. He was sent to [place] where he had a lithotripsy and a left ureteral stent placement. He also has a 6 mm stone in the right kidney. He has a scheduled stent removal on December 01. Over the last 3 days he has noticed increasing low back pain and increasing hematuria. No dysuria, fever, elevated heart rate or nausea/vomiting. He states he has well controlled Crohn's disease but no other medical problems. Bilateral Lower Back Pain Score (Numeric/FACES): 4 - Related Data Allergies Allergy/AdvReac Type Severity Reaction Status Date / Time No Known Allergies Allergy Verified 11/25/20 18:27 Home Meds: Home Meds Ciprofloxacin HCl [Cipro] 500 mg PO BID #14 tablet 11/25/20 [Rx] Past Medical History HEENT History: Reports: Other (See Below) Other HEENT History: wearing glasses Cardiovascular History: Reports: None Respiratory History: Reports: Asthma, Other (See Below) Other Respiratory History: asthma as a child Gastrointestinal History: Reports: Chronic Diarrhea, Other (See Below) Other Gastrointestinal History: crohns disease (treated with diet) Genitourinary History: Reports: Renal Calculus Musculoskeletal History: Reports: Osteoarthritis Neurological History: Reports: None Psychiatric History: Reports: None Endocrine/Metabolic History: Reports: None Hematologic History: Reports: None Immunologic History: Reports: None Oncologic (Cancer) History: Reports: None Dermatologic History: Reports: None - Infectious Disease History Infectious Disease History: Reports: Chicken Pox, Measles - Past Surgical History Head Surgeries/Procedures: Reports: None HEENT Surgical History: Reports: None, Tonsillectomy Cardiovascular Surgical History: Reports: None Respiratory Surgical History: Reports: None GI Surgical History: Reports: Other (See Below) Other GI Surgeries/Procedures: 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 Male Surgical History: Reports: Kidney Stone Extraction, Other (See Below) Other Male Surgeries/Procedures: Stent in left kidney Endocrine Surgical History: Reports: None Neurological Surgical History: Reports: None Musculoskeletal Surgical History: Reports: Other (See Below) Other Musculoskeletal Surgeries/Procedures:: left clavicle surgery for osteomylitis Oncologic Surgical History: Reports: None Social & Family History - Family History Family Medical History: No Pertinent Family History - Tobacco Use Tobacco Use Status *Q: Current Every Day Tobacco User Years of Tobacco use: 40 Packs/Tins Daily: 1 - Caffeine Use Caffeine Use: Reports: Coffee - Recreational Drug Use Recreational Drug Use: No ED ROS GENERAL - Review of Systems Review Of Systems: Comprehensive ROS is negative, except as noted in HPI. ED EXAM, RENAL/ - Physical Exam Exam: See Below Exam Limited By: No Limitations General Appearance: Alert, No Apparent Distress Ears: Normal External Exam Nose: Normal Inspection Throat/Mouth: Normal Inspection Head: Atraumatic, Normocephalic Neck: Normal Inspection Respiratory/Chest: No Respiratory Distress, Lungs Clear, Normal Breath Sounds Cardiovascular: Normal Peripheral Pulses, Regular Rate, Rhythm GI/Abdominal: Soft, Non-Tender, No Distention Back Exam: Normal Inspection. No: CVA Tenderness (L), CVA Tenderness (R) Extremities: Normal Inspection Neurological: Alert, Oriented, Normal Cognition Psychiatric: Normal Affect, Normal Mood Skin Exam: Warm, Dry, Intact, Normal Color, No Rash Lymphatic: No Adenopathy Course - Vital Signs Last Recorded V/S: Last Vital Signs Temp 36.1 C 11/25/20 19:53 Pulse 64 11/25/20 20:41 Resp 18 11/25/20 20:41 BP 143/80 H 11/25/20 20:41 Pulse Ox 99 11/25/20 20:41 - Orders/Labs/Meds Orders: Active Orders 24 hr Category Date Time Status CULTURE URINE [RM] Stat Lab 11/25/20 18:35 Received Ciprofloxacin in D5W [Cipro in D5W 400 MG/200 ML] 400 Med 11/25/20 20:30 Active mg Premix Bag 1 bag IV Q12H Medication Orders Ciprofloxacin/Dextrose 400 mg/ (Premix) 200 mls @ 200 mls/hr IV Q12H ONE Stop: 11/25/20 21:29 Last Admin: 11/25/20 20:38 Dose: 200 mls/hr Documented by: SELMA Labs: Laboratory Tests 12/29/20 12/29/20 12/29/20 Range/Units 18:35 18:35 18:35 WBC 12.49 H (4.0-11.0) K/uL RBC 4.75 (4.50-5.90) M/uL Hgb 14.8 (13.0-17.0) g/dL Hct 44.8 (38.0-50.0) % MCV 94.3 (80.0-98.0) fL MCH 31.2 (27.0-32.0) pg MCHC 33.0 (31.0-37.0) g/dL RDW Std Deviation 47.0 (28.0-62.0) fl RDW Coeff of Marc 14 (11.0-15.0) % Plt Count 226 (150-400) K/uL MPV 9.10 (7.40-12.00) fL Neut % (Auto) 67.1 (48.0-80.0) % Lymph % (Auto) 23.2 (16.0-40.0) % [place] % (Auto) 7.4 (0.0-15.0) % Eos % (Auto) 1.7 (0.0-7.0) % Baso % (Auto) 0.6 (0.0-1.5) % Neut # (Auto) 8.4 H (1.4-5.7) K/uL Lymph # (Auto) 2.9 H (0.6-2.4) K/uL [place] # (Auto) 0.9 H (0.0-0.8) K/uL Eos # (Auto) 0.2 (0.0-0.7) K/uL Baso # (Auto) 0.1 (0.0-0.1) K/uL Nucleated RBC % 0.0 /100WBC Nucleated RBCs # 0 K/uL Sodium 140 (136-148) mmol/L Potassium 3.7 (3.5-5.1) mmol/L Chloride 109 H (98-107) mmol/L Carbon Dioxide 18.8 L (21.0-32.0) mmol/L BUN 20 H (7.0-18.0) mg/dL Creatinine 2.6 H (0.8-1.3) mg/dL Est Cr Clr Drug Dosing 29.67 mL/min Estimated GFR (MDRD) 25.2 ml/min Glucose 82 (74-106) mg/dL Calcium 8.9 (8.5-10.1) mg/dL Urine Color RED Urine Appearance CLOUDY Urine pH 5.0 (5.0-8.0) Ur Specific [place] 1.025 (1.001-1.035) Urine Protein 100 H (NEGATIVE) mg/dL Urine Glucose (UA) NEGATIVE (NEGATIVE) mg/dL Urine Ketones TRACE H (NEGATIVE) mg/dL Urine Occult Blood LARGE H (NEGATIVE) Urine Nitrite POSITIVE H (NEGATIVE) Urine Bilirubin NEGATIVE (NEGATIVE) Urine Urobilinogen 1.0 (<2.0) EU/dL Ur Leukocyte Esterase MODERATE H (NEGATIVE) Urine RBC TOO NUMEROUS TO CT (0-2/HPF) Urine WBC 25-30 (0-5/HPF) Ur Epithelial Cells FEW (NONE-FEW) Urine Bacteria 4+ H (NEGATIVE) Meds: Medications Generic Name Dose Route Start Last Admin Trade Name Freq PRN Reason Stop Dose Admin Ciprofloxacin/Dextrose 400 mg/ 200 mls @ 200 mls/hr 11/25/20 20:30 11/25/20 20:38 Premix IV 11/25/20 21:29 200 mls/hr Q12H ONE Administration Discontinued Medications Generic Name Dose Route Start Last Admin Trade Name Freq PRN Reason Stop Dose Admin Diphenhydramine HCl 50 mg 11/25/20 21:23 Benadryl IVPUSH 11/25/20 21:24 ONETIME ONE Ketorolac Tromethamine 30 mg 11/25/20 20:33 11/25/20 20:38 Toradol IVPUSH 11/25/20 20:34 30 mg ONETIME ONE Administration - Re-Assessments/Exams Free Text/Narrative Re-Assessment/Exam: 11/25/20 21:30 After 240mg of Cipro infused, the patient developed some pink, itchy welts around the injection site. No wheezing, rash or systemic symptoms. 50mg IV benadryl. The remaining 120mg infused with 250cc of NS. Departure - Departure Time of Disposition: 21:14 Disposition: Home, Self-Care 01 Condition: Good Clinical Impression: UTI, Urinary tract infectious disease - Discharge Information Prescriptions: Ciprofloxacin HCl [Cipro] 500 mg PO BID #14 tablet Referrals: Briana Bender,Paco [Primary Care Provider] - Porter Riggs MD [Ordering Only Provider] - Forms: ED Department Discharge Additional Instructions: The following information is given to patients seen in the emergency department who are being discharged to home. This information is to outline your options for follow-up care. We provide all patients seen in our emergency department with a follow-up referral. The need for follow-up, as well as the timing and circumstances, are variable depending upon the specifics of your emergency department visit. If you don't have a primary care physician on staff, we will provide you with a referral. We always advise you to contact your personal physician following an emergency department visit to inform them of the circumstance of the visit and for follow-up with them and/or the need for any referrals to a consulting specialist. The emergency department will also refer you to a specialist when appropriate. This referral assures that you have the opportunity for follow-up care with a specialist. All of these measure are taken in an effort to provide you with optimal care, which includes your follow-up. Under all circumstances we always encourage you to contact your private physician who remains a resource for coordinating your care. When calling for follow-up care, please make the office aware that this follow-up is from your recent emergency room visit. If for any reason you are refused follow-up, please contact the [facility] Emergency Department at and asked to speak to the emergency department charge nurse. 1. Take your antibiotic twice daily starting tomorrow am as you had an IV dose here in the ER. 2. Return to the ER promptly for fever, elevated heart rate, worsening back pain or burning, urgency or frequency of urination. 3. Drink large amounts of oral fluids to flush the kidneys and urinary tract. 4. Follow up with Dr. Riggs on Tuesday as previously scheduled. Sepsis Event Note (ED) - Evaluation Sepsis Screening Result: No Definite Risk - Focused Exam Vital Signs: Vital Signs Temp Pulse Resp BP Pulse Ox 11/25/20 20:41 64 18 143/80 H 99 11/25/20 19:53 36.1 C 65 18 145/80 H 98 11/25/20 18:28 36.2 C 82 16 125/79 97 - My Orders Last 24 Hours: My Active Orders 11/25/20 18:35 CULTURE URINE [RM] Stat 11/25/20 20:30 Ciprofloxacin in D5W [Cipro in D5W 400 MG/200 ML] 400 mg Premix Bag 1 bag IV Q12H - Assessment/Plan Last 24 Hours: My Active Orders 11/25/20 18:35 CULTURE URINE [] Stat 11/25/20 20:30 Ciprofloxacin in D5W [Cipro in D5W 400 MG/200 ML] 400 mg Premix Bag 1 bag IV Q12H
[2020-11-25] MEDS ORDERED: diphenhydrAMINE 50 MG/ML SDV IVPUSH ONE (21:23)
[2020-11-25 21:57] VITALS: BP 132/90; PULSE 68
== END 2020-11-25 21:57 | disposition home or self-care (01) ==
LOC: MW.ED 18:11
DX: N39.0 Urinary tract infection, site not specified (principal); F17.210 Nicotine dependence, cigarettes, uncomplicated
CPT/HCPCS: 80048; 81001; 85025; 87086; 96365; 96375; 99283; J0744; J1200; J1885

== ENCOUNTER 2021-02-28 15:42 | Emergency (ER) | payer BC ==
[2021-02-28] MEDS ORDERED: Sodium Chloride 0.9% 2.5 ML Syringe FLUSH PRN (15:57)
[2021-02-28] MEDS ORDERED: Sodium Chloride 0.9% 10 ML Syringe FLUSH PRN (15:57)
--- NOTE | 2021-02-28 15:58 | PCM.SN.2 ---
- Free Text/Narrative Note: EKG sinus rhythm with a heart rate of 67 [place] 70 normal QRS except for late transition to R wave in Q's in V2 1 in V2. No prior for comparison. Impression no obvious acute injury.
--- NOTE | 2021-02-28 16:21 | EDM.PDOC ---
ED HPI GENERAL MEDICAL PROBLEM - General Chief Complaint: Respiratory Problem Stated Complaint: SOB Time Seen by Provider: 02/28/21 15:43 Source of Information: Reports: Patient History Limitations: Reports: No Limitations - History of Present Illness INITIAL COMMENTS - FREE TEXT/NARRATIVE: HISTORY AND PHYSICAL: History of present illness: Patient is a 60-year-old male who presents to the ED today with concern of bilateral lower extremity swelling and shortness of breath x3 days. Patient states that he was on vacation in [place] 1 week ago when he was diagnosed with a 8 mm kidney stone on the right. Patient states that he has had frequent kidney stones in the past, even one prior that required lithotripsy. Patient states that he was given unknown medications as they were in [place] and states that he does not believe he has passed the stone as he still has right flank pain. Patient states that he had been taking the medication that was prescribed to him, although he is unsure of what kind of medication it was. Patient states he began noticing lower extremity edema that is non-painful and SOB that is worse with exertion x 3 days. Also expresses a "full sensation" in his chest associated with the SOB. Patient states he does smoke a pack of cigarettes a day and has so for many years. Patent is requesting Toradol for pain as this helps him in the past. Patient denies fever, chills, chest pain, shortness of breath, or cough. Denies headache, neck stiff ness, change in vision, syncope, or near syncope. Denies nausea, vomiting, abdominal pain, diarrhea, constipation, or dysuria. Has not noted any blood in urine or stool. Patient has been eating and drinking appropriately. Review of systems: As per history of present illness and below otherwise all systems reviewed and negative. Past medical history: As per history of present illness and as reviewed below otherwise noncontributory. Surgical history: As per history of present illness and as reviewed below otherwise noncontributory. Social history: See social history for further information Family history: As per history of present illness and as reviewed below otherwise noncontributory. Physical exam: General: Patient is alert, oriented, and in no acute distress. Patient sitting comfortably on exam table. Vitals stable and reviewed by me. HEENT: Atraumatic, normocephalic, pupils equal and reactive bilaterally, negative for conjunctival pallor or scleral icterus, mucous membranes moist, TMs normal bilaterally, throat clear, neck supple, nontender, trachea midline. No drooling or trismus noted. No meningeal signs. No hot potato voice noted. Lungs: Clear to auscultation, breath sounds equal bilaterally, chest nontender. Heart: S1S2, regular rate and rhythm without overt murmur Abdomen: Soft, nondistended, nontender. Negative for masses or hepatosplenomegaly. Positive for costovertebral tenderness of the right. Pelvis: Stable nontender. Genitourinary: Deferred. Rectal: Deferred. Skin: Intact, warm, dry. No lesions or rashes noted. Extremities: 2+ bilateral pitting edema without erythema, increased warmth. Dorsalis pedis and posterior tibial toe pulses are grossly intact bilaterally with capillary refill less than 2 seconds. Otherwise atraumatic, negative for cords or calf pain. Neurovascular unremarkable. Neuro: Awake, alert, oriented. Cranial nerves II through XII unremarkable. Cerebellum unremarkable. Motor and sensory unremarkable throughout. Exam nonfocal. Notes: On initial exam, patient is well-appearing, nontoxic, and vitally stable. He does have positive CVA tenderness of the right. He does have 2+ pitting edema of bilateral lower extremities to the knees. Lungs are clear on exam. He is requesting toradol for pain as it has worked with his other kidney stones. Will perform routine lab work as well as scan of the abd/pelvis to assess stone. CBC is unremarkable, chemistry shows an elevated creatinine of 3.8 and a BUN of 26. Patient has had elevated kidney function tests in the past, however, these appear to be in the presence of prior stones. Urinalysis shows 1-3 red blood cells with 0-2 white blood cells. Troponin and BNP negative. Chest x-ray no acute cardiopulmonary findings. Abdominal pelvic CT shows a 4 mm stone at the right UVJ with mild hydronephrosis. Severe right nephrolithiasis has worsened since prior exam. Mild left renal nephrolithiasis. Bowel pattern suspicious for partial small bowel obstruction. However, this is similar to prior exam. Currently, we do not have urology available. I will speak to the urologist on- call, Dr. Carolina, [facility], and thoroughly discussed patient's case. She would like patient transferred to the hospitalist service and requests accepting through the emergency room, however, she does believe that patient requires a stent at this time. Patient has last eaten at 9 AM this morning. EMS transfer offered to patient but requesting transfer via private vehicle. Discussed versus benefits discussed with patient and expresses understanding. Voices understanding and is agreeable to plan of care. Denies any further questions or concerns at this time. Diagnostics: EKG, CBC, CMP, UA, CXR, Trop, BNP, Abd/Pelvic CT w cont Therapeutics: LR, Morphine, Toradol Impression: Ureterolithiasis, right Acute renal failure Plan: Transfer to [facility] via private vehicle to Dr. Burgess (ER) and Dr. Graves (urology) Definitive disposition and diagnosis as appropriate pending reevaluation and review of above. - Related Data Allergies Allergy/AdvReac Type Severity Reaction Status Date / Time No Known Allergies Allergy Verified 02/28/21 15:45 Home Meds: Home Meds . [No Known Home Meds] 02/28/21 [History] Past Medical History HEENT History: Reports: Other (See Below) Other HEENT History: wearing glasses Cardiovascular History: Reports: None Respiratory History: Reports: Asthma, Other (See Below) Other Respiratory History: asthma as a child Gastrointestinal History: Reports: Chronic Diarrhea, Other (See Below) Other Gastrointestinal History: crohns disease (treated with diet) Genitourinary History: Reports: Renal Calculus Musculoskeletal History: Reports: Osteoarthritis Neurological History: Reports: None Psychiatric History: Reports: None Endocrine/Metabolic History: Reports: None Hematologic History: Reports: None Immunologic History: Reports: None Oncologic (Cancer) History: Reports: None Dermatologic History: Reports: None - Infectious Disease History Infectious Disease History: Reports: Chicken Pox, Measles - Past Surgical History Head Surgeries/Procedures: Reports: None HEENT Surgical History: Reports: None, Tonsillectomy Cardiovascular Surgical History: Reports: None Respiratory Surgical History: Reports: None GI Surgical History: Reports: Other (See Below) Other GI Surgeries/Procedures: 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 Male Surgical History: Reports: Kidney Stone Extraction, Other (See Below) Other Male Surgeries/Procedures: Stent in left kidney Endocrine Surgical History: Reports: None Neurological Surgical History: Reports: None Musculoskeletal Surgical History: Reports: Other (See Below) Other Musculoskeletal Surgeries/Procedures:: left clavicle surgery for osteomylitis Oncologic Surgical History: Reports: None Social & Family History - Family History Family Medical History: No Pertinent Family History - Tobacco Use Tobacco Use Status *Q: Current Every Day Tobacco User Years of Tobacco use: 45 Packs/Tins Daily: 1 - Caffeine Use Caffeine Use: Reports: Coffee - Recreational Drug Use Recreational Drug Use: No ED ROS GENERAL - Review of Systems Review Of Systems: Comprehensive ROS is negative, except as noted in HPI. ED EXAM, GENERAL - Physical Exam Exam: See Below (see dictation) Course - Vital Signs Last Recorded V/S: Last Vital Signs Temp 98.6 F 02/28/21 15:45 Pulse 81 02/28/21 18:59 Resp 18 02/28/21 18:59 BP 184/86 H 02/28/21 18:59 Pulse Ox 99 02/28/21 18:59 - Orders/Labs/Meds Orders: Active Orders 24 hr Category Date Time Status Saline Lock Insert [OM.PC] Stat Oth 02/28/21 15:57 Ordered Labs: Laboratory Tests 02/28/21 02/28/21 02/28/21 Range/Units 15:53 15:53 15:53 WBC 9.89 (4.0-11.0) K/uL RBC 4.08 L (4.50-5.90) M/uL Hgb 12.2 L (13.0-17.0) g/dL Hct 38.6 (38.0-50.0) % MCV 94.6 (80.0-98.0) fL MCH 29.9 (27.0-32.0) pg MCHC 31.6 (31.0-37.0) g/dL RDW Std Deviation 46.2 (28.0-62.0) fl RDW Coeff of Marc 13 (11.0-15.0) % Plt Count 221 (150-400) K/uL MPV 9.30 (7.40-12.00) fL Neut % (Auto) 70.9 (48.0-80.0) % Lymph % (Auto) 16.6 (16.0-40.0) % [place] % (Auto) 10.6 (0.0-15.0) % Eos % (Auto) 1.5 (0.0-7.0) % Baso % (Auto) 0.4 (0.0-1.5) % Neut # (Auto) 7.0 H (1.4-5.7) K/uL Lymph # (Auto) 1.6 (0.6-2.4) K/uL [place] # (Auto) 1.1 H (0.0-0.8) K/uL Eos # (Auto) 0.2 (0.0-0.7) K/uL Baso # (Auto) 0.0 (0.0-0.1) K/uL Nucleated RBC % 0.0 /100WBC Nucleated RBCs # 0 K/uL INR Sodium 139 (136-148) mmol/L Potassium 4.5 (3.5-5.1) mmol/L Chloride 107 (98-107) mmol/L Carbon Dioxide 21.9 (21.0-32.0) mmol/L BUN 26 H (7.0-18.0) mg/dL Creatinine 3.8 H (0.8-1.3) mg/dL Est Cr Clr Drug Dosing 20.30 mL/min Estimated GFR (MDRD) 16.3 ml/min Glucose 97 (74-106) mg/dL Calcium 8.3 L (8.5-10.1) mg/dL Total Bilirubin 0.2 (0.2-1.0) mg/dL AST 14 L (15-37) IU/L ALT 28 (14-63) IU/L Alkaline Phosphatase 70 (46-116) U/L Troponin I < 0.050 (0.000-0.056) ng/mL B-Natriuretic Peptide 42 (<100) PG/ML Total Protein 6.5 (6.4-8.2) g/dL Albumin 2.8 L (3.4-5.0) g/dL Globulin 3.7 (2.6-4.0) g/dL Albumin/Globulin Ratio 0.8 L (0.9-1.6) Urine Color Urine Appearance Urine pH (5.0-8.0) Ur Specific [place] (1.001-1.035) Urine Protein (NEGATIVE) mg/dL Urine Glucose (UA) (NEGATIVE) mg/dL Urine Ketones (NEGATIVE) mg/dL Urine Occult Blood (NEGATIVE) Urine Nitrite (NEGATIVE) Urine Bilirubin (NEGATIVE) Urine Urobilinogen (<2.0) EU/dL Ur Leukocyte Esterase (NEGATIVE) Urine RBC (0-2/HPF) Urine WBC (0-5/HPF) Ur Epithelial Cells (NONE-FEW) Urine Bacteria (NEGATIVE) 02/28/21 02/28/21 Range/Units 15:53 16:52 WBC (4.0-11.0) K/uL RBC (4.50-5.90) M/uL Hgb (13.0-17.0) g/dL Hct (38.0-50.0) % MCV (80.0-98.0) fL MCH (27.0-32.0) pg MCHC (31.0-37.0) g/dL RDW Std Deviation (28.0-62.0) fl RDW Coeff of Marc (11.0-15.0) % Plt Count (150-400) K/uL MPV (7.40-12.00) fL Neut % (Auto) (48.0-80.0) % Lymph % (Auto) (16.0-40.0) % [place] % (Auto) (0.0-15.0) % Eos % (Auto) (0.0-7.0) % Baso % (Auto) (0.0-1.5) % Neut # (Auto) (1.4-5.7) K/uL Lymph # (Auto) (0.6-2.4) K/uL [place] # (Auto) (0.0-0.8) K/uL Eos # (Auto) (0.0-0.7) K/uL Baso # (Auto) (0.0-0.1) K/uL Nucleated RBC % /100WBC Nucleated RBCs # K/uL INR 0.96 Sodium (136-148) mmol/L Potassium (3.5-5.1) mmol/L Chloride (98-107) mmol/L Carbon Dioxide (21.0-32.0) mmol/L BUN (7.0-18.0) mg/dL Creatinine (0.8-1.3) mg/dL Est Cr Clr Drug Dosing mL/min Estimated GFR (MDRD) ml/min Glucose (74-106) mg/dL Calcium (8.5-10.1) mg/dL Total Bilirubin (0.2-1.0) mg/dL AST (15-37) IU/L ALT (14-63) IU/L Alkaline Phosphatase (46-116) U/L Troponin I (0.000-0.056) ng/mL B-Natriuretic Peptide (<100) PG/ML Total Protein (6.4-8.2) g/dL Albumin (3.4-5.0) g/dL Globulin (2.6-4.0) g/dL Albumin/Globulin Ratio (0.9-1.6) Urine Color YELLOW Urine Appearance CLEAR Urine pH 5.5 (5.0-8.0) Ur Specific [place] 1.015 (1.001-1.035) Urine Protein NEGATIVE (NEGATIVE) mg/dL Urine Glucose (UA) NEGATIVE (NEGATIVE) mg/dL Urine Ketones NEGATIVE (NEGATIVE) mg/dL Urine Occult Blood SMALL H (NEGATIVE) Urine Nitrite NEGATIVE (NEGATIVE) Urine Bilirubin NEGATIVE (NEGATIVE) Urine Urobilinogen 0.2 (<2.0) EU/dL Ur Leukocyte Esterase NEGATIVE (NEGATIVE) Urine RBC 1-3 (0-2/HPF) Urine WBC 0-2 (0-5/HPF) Ur Epithelial Cells FEW (NONE-FEW) Urine Bacteria RARE (NEGATIVE) Meds: Medications Discontinued Medications Generic Name Dose Route Start Last Admin Trade Name Freq PRN Reason Stop Dose Admin Sodium Chloride 1,000 mls @ 999 mls/hr 02/28/21 19:18 02/28/21 19:25 Normal Saline IV 02/28/21 20:18 Not Given STAT ONE Lactated Ringer's 1,000 mls @ 999 mls/hr 02/28/21 19:19 02/28/21 19:30 Ringers, Lactated IV 02/28/21 20:19 999 mls/hr .BOLUS ONE Administration Ketorolac Tromethamine 30 mg 02/28/21 18:23 02/28/21 18:55 Ketorolac 30 Mg/Ml Sdv IVPUSH 02/28/21 18:24 30 mg ONETIME ONE Administration Morphine Sulfate 4 mg 02/28/21 18:23 02/28/21 18:55 Morphine 4 Mg/Ml Syringe IVPUSH 02/28/21 18:24 4 mg ONETIME ONE Administration Sodium Chloride 10 ml 02/28/21 15:57 02/28/21 16:22 Sodium Chloride 0.9% 10 Ml Syringe FLUSH 10 ml ASDIRECTED PRN Administration Keep Vein Open Sodium Chloride 2.5 ml 02/28/21 15:57 02/28/21 16:22 Sodium Chloride 0.9% 2.5 Ml Syringe FLUSH 2.5 ml ASDIRECTED PRN Administration Keep Vein Open Departure - Departure Time of Disposition: 20:06 Disposition: DC/Tfer to [facility] 02 Clinical Impression: Ureterolithiasis Acute renal failure Qualifiers: Acute renal failure type: unspecified Qualified Code(s): N17.9 - Acute kidney failure, unspecified - Discharge Information Referrals: PCP,Unobtain [Primary Care Provider] - Forms: ED Department Discharge Additional Instructions: Do not eat or drink until you are assessed at [facility] Go straight to [facility] Emergency Room [facility] [address] [place] [address] Sepsis Event Note (ED) - Evaluation Sepsis Screening Result: No Definite Risk - Focused Exam Vital Signs: Vital Signs Temp Pulse Resp BP Pulse Ox 02/28/21 18:59 81 18 184/86 H 99 02/28/21 16:47 70 157/89 H 98 02/28/21 16:17 69 155/84 H 97 02/28/21 15:47 78 173/94 H 97 02/28/21 15:45 98.6 F 80 20 173/94 H 98 - My Orders Last 24 Hours: My Active Orders 02/28/21 15:57 Saline Lock Insert [OM.PC] Stat - Assessment/Plan Last 24 Hours: My Active Orders 02/28/21 15:57 Saline Lock Insert [OM.PC] Stat
[2021-02-28 16:33] LABS: BLOOD UREA NITROGEN,BUN 26 mg/dL (7.0-18.0); CARBON DIOXIDE,CO2 21.9 mmol/L (21.0-32.0); CHLORIDE,CL 107 mmol/L (98-107); GLUCOSE RANDOM 97 mg/dL (74-106); POTASSIUM,K 4.5 mmol/L (3.5-5.1); SODIUM,NA 139 mmol/L (136-148)
--- NOTE | 2021-02-28 16:41 | CR ---
INDICATION: Dyspnea. TECHNIQUE: Portable AP image of the chest. COMPARISON: None. FINDINGS: Lungs and pleural spaces clear. Heart, mediastinum and pulmonary vessels normal. No significant osseous abnormality. IMPRESSION: Negative chest. Dictated by Rock Lindo MD @ Feb 28 2021 4:39PM Signed by Dr. Rock Lindo @ Feb 28 2021 4:40PM
[2021-02-28] MEDS ORDERED: Morphine 4 MG/ML Syringe IVPUSH ONE (18:23)
[2021-02-28] MEDS ORDERED: Ketorolac 30 MG/ML SDV IVPUSH ONE (18:23)
--- NOTE | 2021-02-28 18:28 | CT ---
INDICATION: Ureterolithiasis. TECHNIQUE: CT abdomen and pelvis without contrast. COMPARISON: 10/22/2020. FINDINGS: Lower chest: Unremarkable. Liver: Normal in size and attenuation. No masses. Gallbladder and bile ducts: Stable gallbladder stone. Otherwise unremarkable. Pancreas: Unremarkable. No mass or inflammation. Spleen: Normal in size. No masses. Adrenal glands: Normal in size. No nodules. Kidneys: There is a 4 mm stone at the right ureterovesical junction on series 201, image 148. This stone is causing mild hydronephrosis. Numerous additional stones present throughout the right kidney. Many fewer stones are present in the left kidney. GI tract: Again demonstrated are postsurgical changes in the mid small bowel. Moderate fluid distention of several small bowel loops is similar to the prior exam. The colon is within normal limits. Vasculature: Unremarkable. Lymph nodes: No lymphadenopathy. Abdominal wall/Omentum/Peritoneum: Unremarkable. No sign of mass or infiltration. No free air or significant free fluid. Pelvis: Unremarkable. No pelvic masses. Bones: Unremarkable for age. IMPRESSION: 1. 4 mm stone at the right UVJ causing mild hydronephrosis. Severe right renal nephrolithiasis has worsened since prior exam. Mild left renal nephrolithiasis. 2. Bowel pattern is suspicious for a partial small bowel obstruction. However, this pattern is similar to the prior exam. Please note that all CT scans at this facility use dose modulation, iterative reconstruction, and/or weight-based dosing when appropriate to reduce radiation dose to as low as reasonably achievable. Dictated by Jaiden Hinojosa MD @ Feb 28 2021 6:17PM Signed by Dr. Jaiden Hinojosa @ Feb 28 2021 6:26PM
[2021-02-28 19:00] VITALS: BP 184/86; PULSE 81
[2021-02-28] MEDS ORDERED: Sodium Chloride 0.9% 1,000 ML IV ONE (19:18)
[2021-02-28] MEDS ORDERED: Lactated Ringers 1,000 ML IV ONE (19:19)
== END 2021-02-28 20:40 ==
LOC: MW.ED 15:42
DX: N17.9 Acute kidney failure, unspecified (principal); N13.2 Hydronephrosis with renal and ureteral calculous obstruction; F17.210 Nicotine dependence, cigarettes, uncomplicated; J45.909 Unspecified asthma, uncomplicated
CPT/HCPCS: 36415; 71045; 74176; 80053; 81001; 83880; 84484; 85025; 85610; 93005; 96374; 96375; 99285; J1885; J2270; J7120

== ENCOUNTER 2023-05-27 17:49 | Emergency (ER) | payer BC ==
[2023-05-27] MEDS ORDERED: Lidocaine 1% 5 ML VIAL INJECT ONE (18:08)
[2023-05-27 18:56] VITALS: BP 148/80; PULSE 76
== END 2023-05-27 18:56 | disposition home or self-care (01) ==
LOC: MW.ED 17:49
DX: S61.001A Unspecified open wound of right thumb without damage to nail, initial encounter (principal); J45.909 Unspecified asthma, uncomplicated; Z79.899 Other long term (current) drug therapy; W26.0XXA Contact with knife, initial encounter
CPT/HCPCS: 64450; 99282; 99283; J3490